=== PATIENT | female | born 2000 ===

== ENCOUNTER 2025-11-05 22:34 | Inpatient (IN) | payer OTHER ==
[2025-11-05 23:09] VITALS: BMI 26.7
[2025-11-06 00:02] LABS: Hematocrit 37.4 % (34.9-44.5); Hemoglobin 12.5 g/dL (12.0-15.5); Mean Corpuscular Hemoglobin 28.0 pg (27.0-33.0); Mean Corpuscular Volume 83.7 fL (81.6-98.3); Platelet Count 199 10x3/uL (150-450); Red Blood Cell (RBC) Count 4.47 10x6/uL (3.90-5.03); White Blood Cell (WBC) Count 13.85 10x3/uL (3.5-10.5)
[2025-11-06] MEDS ORDERED: Oxytocin 30 units/NS 500 ML 500 ML IV SCH ×2 (00:15→02:15)
[2025-11-06 00:32] LABS: Hep B Surf Ag - L&D Non-Reactive S/CO (NonReactive)
[2025-11-06 00:33] LABS: Syphilis Antibody Index 0.20 S/CO (<1.00 Non-Reactive)
[2025-11-06] MEDS ORDERED: Tranexamic Acid 1,000 MG/10 ML VIAL IVP PRN (02:15)
[2025-11-06] MEDS ORDERED: Ondansetron PF 4 MG/2 ML Vial IVP PRN (02:15)
[2025-11-06] MEDS ORDERED: Acetaminophen 500 MG TAB PO PRN (02:15)
[2025-11-06] MEDS ORDERED: Carboprost 250 MCG/ML AMP IM PRN (02:15)
[2025-11-06] MEDS ORDERED: Methylergonovine 0.2 MG/ML VIAL IM PRN (02:15)
[2025-11-06] MEDS ORDERED: hydrALAZINE 20 MG/ML VIAL SLOW IVP PRN ×2 (02:15→03:30)
[2025-11-06] MEDS: Lidocaine 1% (PF) 30 ML VIAL SC PRN (03:11)
[2025-11-06] MEDS ORDERED: diphenhydrAMINE 25 MG CAP PO PRN (03:30)
[2025-11-06] MEDS ORDERED: Milk Of Magnesia 30 ML UDCUP PO PRN (03:30)
[2025-11-06] MEDS ORDERED: Bisacodyl 10 MG SUPP PR PRN (03:30)
[2025-11-06] MEDS ORDERED: Ibuprofen 800 MG TAB PO PRN (04:15)
[2025-11-06] MEDS: Ibuprofen 800 MG TAB PO PRN (04:25)
[2025-11-06] MEDS: Ferrous Sulfate 325 MG TAB PO SCH (08:19)
[2025-11-06] MEDS: Ibuprofen 800 MG TAB PO SCH ×2 (08:19→11:08)
[2025-11-06] MEDS: Witch Hazel 100 PAD JAR TOP PRN (08:40)
[2025-11-06] MEDS: Benzocaine-Menthol 82.5 ML CAN TOP PRN (08:40)
[2025-11-07 04:20] LABS: #Basophils 0.03 10x3/uL (0.0-0.2); #Eosinophils 0.09 10x3/uL (0.0-0.5); #Monocytes 1.08 10x3/uL (0.0-1.1); #Neutrophils 10.61 10x3/uL (1.5-8.4); %Basophils 0.2 % (0.0-2.0); %Eosinophils 0.6 % (0.0-6.0); %Lymphocytes 25.1 % (18.0-47.0); %Monocytes 6.8 % (0.0-10.0); %Neutrophils 66.9 % (40.0-75.0); Hematocrit 30.4 % (34.9-44.5); Hemoglobin 10.0 g/dL (12.0-15.5); Mean Corpuscular Hemoglobin 28.0 pg (27.0-33.0); Mean Corpuscular Volume 85.2 fL (81.6-98.3); Platelet Count 166 10x3/uL (150-450); Red Blood Cell (RBC) Count 3.57 10x6/uL (3.90-5.03); White Blood Cell (WBC) Count 15.84 10x3/uL (3.5-10.5)
[2025-11-07 08:19] VITALS: BP 107/65; TEMP 98.4
== END 2025-11-07 15:40 | disposition home or self-care (01) | DRG 807 ==
LOC: CSHLD/OP 22:34 → CSHLD 23:23 → CSHPP 11-06 05:35
PROVIDERS: ADMIT Obstetrics & Gynecology; ATTEND Obstetrics & Gynecology
PROC: 10E0XZZ Delivery of Products of Conception, External Approach (ICD-10-PCS; principal; 2025-11-06)
PROC: 0KQM0ZZ Repair Perineum Muscle, Open Approach (ICD-10-PCS; 2025-11-06)
DX: O42.02 Full-term premature rupture of membranes, onset of labor within 24 hours of rupture (principal); Z37.0 Single live birth; O48.0 Post-term pregnancy; Z3A.41 41 weeks gestation of pregnancy; O62.3 Precipitate labor; O70.1 Second degree perineal laceration during delivery
CPT/HCPCS: 36415; 85025; 85027; 86780; 86850; 86900; 86901; 87340; 99285; J2003